=== PATIENT | male | born 1965 | race Caucasian/White ===

== ENCOUNTER 2021-06-04 11:10 | Inpatient (IN) | payer OTHER ==
[2021-05-27 15:45] LABS: BASOPHILS % (AUTO) 0.6 % (0-1); EOSINOPHILS # (AUTO) 0.1 X10'3 (0-0.9); EOSINOPHILS % (AUTO) 2.3 % (0-6); LYMPHOCYTES # (AUTO) 1.5 X10'3 (1.1-4.8); LYMPHOCYTES % (AUTO) 24.5 % (21-51); MEAN CORPUSCULAR HEMOGLOBIN 32.3 PG (27.0-31.0); MEAN CORPUSCULAR HGB CONC 34.9 g/dL (33.0-36.5); MEAN CORPUSCULAR VOLUME 92.5 FL (78-98); MEAN PLATELET VOLUME 10.6 FL (7.4-10.4); MONOCYTES # (AUTO) 0.8 X10'3 (0-0.9); MONOCYTES % (AUTO) 13.2 % (2-12); NEUTROPHILS # (AUTO) 3.6 X10'3 (1.8-7.7); NEUTROPHILS % (AUTO) 59.4 % (42-75); PRE OP HEMATOCRIT 45.5 % (42.0-52.0); PRE OP HEMOGLOBIN 15.9 g/dL (14.0-17.9); PRE OP PLATELET COUNT 128 X10'3 (140-440); RED BLOOD COUNT 4.92 X10'6 (4.70-6.10)
[2021-05-27 15:57] LABS: ALBUMIN/GLOBULIN RATIO 1.1 (1.1-1.5); ALKALINE PHOSPHATASE 64 IU/L (46-116); BLOOD UREA NITROGEN 20 MG/DL (7-18); BUN/CREATININE RATIO 18.3 (5.4-32.0); CALCIUM 8.9 MG/DL (8.5-10.1); CHLORIDE 106 MMOL/L (99-107); CREATININE 1.09 MG/DL (0.60-1.10); PRE OP ALT 50 U/L (30-65); PRE OP ANION GAP 9 (8-16); PRE OP AST 29 U/L (10-37); PRE OP BILIRUB, TOTAL 0.4 MG/DL (0.0-1.0); PRE OP GLUCOSE 105 MG/DL (70-104); PRE OP SODIUM 142 MMOL/L (135-145); TOTAL CARBON DIOXIDE 26.7 MMOL/L (24-32); TOTAL PROTEIN 7.5 G/DL (6.4-8.2); eGFR 70 ML/MIN
[2021-05-27 16:08] LABS: LARGE PLATELETS FEW; PLATELET ESTIMATE DECREASED
[2021-06-03 23:45] VITALS: BP 134/79
[2021-06-04] VITALS (36 sets, daily range): BP systolic 119–146; BP diastolic 61–92
[~2021-06-04] VITALS: Ht 188 cm; Wt 110.1 kg
[~2021-06-04 11:10] MED LIST: ADRENAL SUPPORT PO; ASTRAGALUS PO; CIDE600C PO; SELENIUM PO; [UNRECOGNIZED DRUG - OTHER] PO; [UNRECOGNIZED DRUG - OTHER] PO; [UNRECOGNIZED DRUG - OTHER] PO; [UNRECOGNIZED DRUG - OTHER] PO; cefazolin/dext.iso 2gm/50ml 50 ML IV ONE; famotidine 20mg tablet PO ONE; ringers solution, lacted 1,000 ML IV SCH; tranexamic acid 1gm/0.7% sal. 100 ML IV ONE; vancomycin 1,500 MG in NS 300ml IV soln IV ONE
[2021-06-04] MEDS ORDERED: vancomycin 1,000mg inj ONE (12:40)
[2021-06-04] MEDS ORDERED: fentaNYL/PF 50MCG/1 ML 2ML syringe ONE (13:17)
[2021-06-04] MEDS ORDERED: ROPIVAcaine 0.5% (5mg/ml) 30ml vial ONE (13:18)
[2021-06-04] MEDS ORDERED: MIDAZolam 1 MG/ML 5ML VIAL ONE (13:18)
[2021-06-04] MEDS ORDERED: sevoflurane 250ml liquid IH ONE (13:21)
[2021-06-04] MEDS ORDERED: propofol 10mg/ml 20ml vial IV ONE (13:21)
[2021-06-04] MEDS ORDERED: rocuronium 10mg/ml inj IV ONE ×2 (13:33→16:13)
[2021-06-04] MEDS ORDERED: ROPIVAcaine 0.2% (10 MG/5 ML) BOLUS INJECTION INTERSCALE PRN (14:10)
[2021-06-04] MEDS ORDERED: meperidine/PF 25mg/ml syringe IV PRN ×3 (14:10)
[2021-06-04] MEDS ORDERED: ROPIVAcaine 0.2%/PF PUMP/bolus 545 ML INTERSCALE SCH (14:10)
[2021-06-04] MEDS ORDERED: ondansetron/PF 4mg/2ml inj IV PRN ×2 (14:10→16:35)
[2021-06-04] MEDS ORDERED: proCHLORperazine 10 MG/2 ml inj IV PRN (14:10)
[2021-06-04] MEDS ORDERED: ringers solution, lacted 1,000 ML IV SCH (14:10)
[2021-06-04] MEDS ORDERED: Thrombin (Bovine) 5,000 unit vial TP ONE (14:53)
[2021-06-04] MEDS ORDERED: neostigmine methylsulfate 1 MG/ML 10ml vial ONE (16:13)
[2021-06-04] MEDS ORDERED: glycopyrrolate 0.2mg/ml inj ONE (16:16)
--- NOTE | 2021-06-04 16:29 | NUR ---
Received from OR via , accompanied by Anesthesiologist DR MURRELL and report given by Anesthesiolgist. PT PRESENTS WITH 18G LEFT HAND, RIGHT SHOULDER DRESSING DRY AND INTACT WITH POWDER PACK. VSS. Addendum: 06/04/21 at 1642 by Christy Cespedes RN, RN Amended: Links added.
[2021-06-04] MEDS ORDERED: oxyCODONE IR 5mg (immed. release) tablet PO PRN (16:35)
[2021-06-04] MEDS ORDERED: acetaminophen 325mg tablet PO PRN (16:35)
[2021-06-04] MEDS ORDERED: HYDROmorphone 1 mg/ml syringe IV PRN (16:35)
[2021-06-04] MEDS ORDERED: bisacodyl 10mg suppository rectal RC PRN (16:35)
[2021-06-04] MEDS ORDERED: HYDROmorphone inj. 0.5 MG/0.5 ML DISP.SYRIN IV PRN (16:35)
[2021-06-04] MEDS ORDERED: diphenhydrAMINE 25mg capsule PO PRN ×2 (16:35)
[2021-06-04] MEDS ORDERED: magnesium hydroxide 30ml (MOM) UD suspension PO PRN (16:35)
[2021-06-04] MEDS ORDERED: tranexamic acid 1gm/0.7% sal. 100 ML IV ONE (19:30)
[2021-06-04] MEDS ORDERED: vancomycin/NS 1 GM ADD-VANTAGE 250 ML IV SCH (20:00)
[2021-06-04] MEDS: potassium cl 20mEq in 1/2 NS 1,000 ML IV SCH (20:21)
--- NOTE | 2021-06-04 20:49 | NUR ---
Report called to receiving nurse ARMIN GUILLORY. Transferred via [facility]OSPITAL BED WITH 2 PT Belongings BAGS. PT TO ROOM. BED LOCKED AND IN LOW POSITION CALL LIGHT WITHIN REACH. . Special Issues communicated to receiving nurse. Addendum: 06/04/21 at 2058 by Christy Cespedes RN RN Amended: Links added.
[2021-06-04] MEDS ORDERED: sennosides 8.6mg tablet PO SCH (21:00)
--- NOTE | 2021-06-04 21:46 | NUR ---
spoke to Dr Levin for confirmation to hold tranexamic acid. will cont to monitor pt
[2021-06-04] MEDS: gabapentin 300mg capsule PO SCH (22:10)
[2021-06-04] MEDS: acetaminophen 325mg tablet PO SCH (22:10)
[2021-06-05] VITALS: BP 119/64
[2021-06-05 00:30] VITALS: BP 116/67
[2021-06-05] MEDS: potassium cl 20mEq in 1/2 NS 1,000 ML IV SCH ×2 (00:35→08:35)
[2021-06-05] MEDS: acetaminophen 325mg tablet PO SCH ×2 (02:35→08:44)
[2021-06-05] MEDS: oxyCODONE IR 5mg (immed. release) tablet PO PRN ×3 (02:45→11:32)
[2021-06-05 04:00] VITALS: BP 115/63
[2021-06-05 06:23] LABS: BASOPHILS % (AUTO) 0.1 % (0-1); EOSINOPHILS % (AUTO) 0.2 % (0-6); HEMATOCRIT 40.3 % (42.0-52.0); HEMOGLOBIN 14.3 g/dl (14.0-17.9); LYMPHOCYTES # (AUTO) 1.2 X10'3 (1.1-4.8); LYMPHOCYTES % (AUTO) 10.2 % (21-51); MEAN CORPUSCULAR HEMOGLOBIN 32.5 PG (27.0-31.0); MEAN CORPUSCULAR HGB CONC 35.4 g/dL (33.0-36.5); MEAN CORPUSCULAR VOLUME 91.7 FL (78-98); MEAN PLATELET VOLUME 10.7 FL (7.4-10.4); MONOCYTES # (AUTO) 1.5 X10'3 (0-0.9); NEUTROPHILS % (AUTO) 76.5 % (42-75); PLATELET COUNT 131 X10'3 (140-440); RED BLOOD COUNT 4.39 X10'6 (4.70-6.10); RED CELL DISTRIBUTION WIDTH 13.4 % (11.5-14.5); WHITE BLOOD COUNT 11.8 X10'3 (4.5-11.0)
[2021-06-05 06:40] LABS: ANION GAP 13 (8-16); CHLORIDE 105 MMOL/L (99-107); POTASSIUM 4.2 MMOL/L (3.5-5.1); SODIUM 139 MMOL/L (135-145)
--- NOTE | 2021-06-05 07:04 | NUR ---
Patient in room [facility]. I have received report from ARMIN GUILLORY and had the opportunity to ask questions and assume patient care.
[2021-06-05 08:00] VITALS: BP 128/82
[2021-06-05] MEDS: ceFAZolin/D5W- 1GM premix 50 ML IV SCH ×2 (08:00)
[2021-06-05] MEDS ORDERED: aspirin 325mg tablet PO SCH (08:30)
[2021-06-05] MEDS: gabapentin 300mg capsule PO SCH ×2 (08:43→12:20)
[2021-06-05] MEDS ORDERED: ceFAZolin/D5W- 1GM premix 50 ML IV SCH (10:00)
--- NOTE | 2021-06-05 13:27 | NUR ---
Pt s/p right total shoulder arthroplasty seen at bedside provided with written and verbal protein education. Pt reports being stocked with protein items at home for discharge. RD contact information provided and pt encouraged to reach out if needed. Pt endorses a good appetite and denies food allergies or difficulty chewing/swallowing. Will continue to follow. Addendum: 06/05/21 at [address] Amended: Links added.
--- NOTE | 2021-06-05 13:39 | NUR ---
Patient discharged in stable condition. Iv removed, tip intact, no complications. Pt educated on post op instructions. Belongings sent with patient. Pt discharged to home with
[2021-06-05] MEDS ORDERED: celeCOXIB 100mg capsule PO SCH ×2 (20:00)
[2021-06-06] MEDS ORDERED: acetaminophen 325mg tablet PO PRN (16:35)
== END 2021-06-05 13:42 | disposition home or self-care (01) | DRG 483 ==
LOC: UNDOADMIN 11:10 → PAS IN 11:10 → SUR 3N 20:20
PROVIDERS: ADMIT Orthopaedic Surgery; ATTEND Orthopaedic Surgery
PROC: 3E0T3BZ Introduction of Anesthetic Agent into Peripheral Nerves and Plexi, Percutaneous Approach (ICD-10-PCS; 2021-06-04)
PROC: 0RRJ0JZ Replacement of Right Shoulder Joint with Synthetic Substitute, Open Approach (ICD-10-PCS; principal; 2021-06-04 13:21)
DX: M19.011 Primary osteoarthritis, right shoulder (principal); Z20.822 Contact with and (suspected) exposure to COVID-19; M25.711 Osteophyte, right shoulder; Z88.8 Allergy status to other drugs, medicaments and biological substances; Z98.1 Arthrodesis status; Z88.5 Allergy status to narcotic agent; Z87.891 Personal history of nicotine dependence
CPT/HCPCS: Z7506; Z7508; 36415; 73020; 80051; 80053; 82948; 85008; 85025; 87081; 93005; 97110; 97161; 97530; A4565; A4618; A7000; C1713; C1776; G0378; J0690; J2250; J2405; J2704; J2710; J2795; J3010; J3370; J3480; J3490; J7040; J7120; U0003; U0005

== ENCOUNTER → 2021-06-24 | Outpatient (CLI) | payer OTHER ==
[~2021-06-24] MED LIST changes: -cefazolin/dext.iso 2gm/50ml 50 ML IV ONE; -famotidine 20mg tablet PO ONE; -ringers solution, lacted 1,000 ML IV SCH; -tranexamic acid 1gm/0.7% sal. 100 ML IV ONE; -vancomycin 1,500 MG in NS 300ml IV soln IV ONE
== END | disposition home or self-care (01) ==
LOC: LAB SPEC 14:19
PROVIDERS: ATTEND Orthopaedic Surgery
DX: M19.90 Unspecified osteoarthritis, unspecified site (principal)
CPT/HCPCS: 87070; 87075; 87077; 87186

== ENCOUNTER 2023-04-09 14:43 | Outpatient (CLI) | payer BC | END 2023-04-09 23:59 | disposition home or self-care (01) | LOC: RAD 14:43 | PROVIDERS: ATTEND Internal Medicine Cardiovascular Disease | DX: Z13.6 Encounter for screening for cardiovascular disorders (principal); I25.10 Atherosclerotic heart disease of native coronary artery without angina pectoris; M47.814 Spondylosis without myelopathy or radiculopathy, thoracic region | CPT/HCPCS: 75571 ==